=== PATIENT | female | born 1970 | race Caucasian/White ===

== ENCOUNTER → 2020-06-07 | Outpatient (CLI) | payer BC ==
--- NOTE | 2020-06-14 10:14 | MM ---
Reason for exam: screening (asymptomatic). Last mammogram was performed 1 year and 2 months ago. History: Family history of breast cancer in mother at age 67. Physical Findings: A clinical breast exam by your physician is recommended on an annual basis and results should be correlated with mammographic findings. MG Screening Mammo w CAD Bilateral CC and MLO view(s) were taken. Prior study comparison: April 16, 2019, mammogram. January 14, 2018, mammogram. The breast tissue is heterogeneously dense. This may lower the sensitivity of mammography. No significant changes when compared with prior studies. ASSESSMENT: Benign, BI-RAD 2 RECOMMENDATION: Routine screening mammogram of both breasts in 1 year.
== END | disposition home or self-care (01) ==
LOC: RADMAMWWP 13:49
PROVIDERS: ATTEND Psychiatry & Neurology Psychiatry
DX: Z12.31 Encounter for screening mammogram for malignant neoplasm of breast (principal)
CPT/HCPCS: 77067

== ENCOUNTER → 2020-07-29 | Outpatient (CLI) | payer OTHER ==
--- NOTE | 2020-07-29 13:16 | XR ---
Left knee HISTORY: Trauma and pain 3 views of left knee Bone mineralization, joint spaces and alignment are maintained. Minimal suprapatellar increased densi ty suggests joint effusion. Some spurring present at the patellofemoral joint. IMPRESSION: No acute fracture or dislocation is evident. Small joint effusion. Knee MRI may be of elyse efit.
== END | disposition home or self-care (01) ==
LOC: RADXRMAIN 12:47
PROVIDERS: ATTEND Emergency Medicine
DX: M25.462 Effusion, left knee (principal)

== ENCOUNTER → 2020-08-10 | Outpatient (CLI) | payer OTHER ==
--- NOTE | 2020-08-10 14:44 | XR ---
Left knee HISTORY: Pain, slip and fall 3 views the left knee correlated prior exam 07/29/2020 There is no interval change, suprapatellar increased density may be indicative of small effusion. Dif ficult to exclude small loose body. IMPRESSION: Stable exam, no acute fracture or dislocation.
== END | disposition home or self-care (01) ==
LOC: RADXRMAIN 14:17
PROVIDERS: ATTEND Emergency Medicine
DX: S80.02XD Contusion of left knee, subsequent encounter (principal); S83.92XD Sprain of unspecified site of left knee, subsequent encounter

== ENCOUNTER → 2020-09-22 | Outpatient (CLI) | payer OTHER ==
--- NOTE | 2020-09-22 13:09 | MR ---
EXAMINATION TYPE: MR knee LT wo con DATE OF EXAM: 09/22/2020 COMPARISON: Left knee x-ray August 10, 2020 HISTORY: LT KNEE PAIN DUE TO FALL TECHNIQUE: Multiplanar, multisequence imaging of the left knee is performed without IV contrast. FINDINGS: MEDIAL MENISCUS: Anterior and posterior horns are intact without tear. LATERAL MENISCUS: Anterior and posterior horns are intact without tear. CRUCIATE LIGAMENTS: The anterior and posterior cruciate ligaments are intact and unremarkable. COLLATERAL LIGAMENTS: The medial collateral ligament and lateral collateral ligament complex are inta ct and unremarkable. EXTENSOR MECHANISM: Visualized quadriceps and patellar tendons are intact. EFFUSION: No significant suprapatellar joint effusion. POPLITEAL CYST: No popliteal/feliz cyst. TRICOMPARTMENT SPACES: Mild to moderate narrowing inferior patellofemoral compartment. Mild tricompar tment joint space spurring CARTILAGE: Some chondromalacia patella with thinning of articular cartilage inferiorly along the post erior patellar pole. There is full-thickness loss inferiorly near axial image 20 identified. BONE MARROW SIGNAL: Areas of heterogeneous subchondral cystic change and full-thickness cartilaginous loss inferior patellar pole axial image 20 and sagittal image 11 noted. OTHER: No additional significant abnormality is appreciated. IMPRESSION: No full-thickness meniscal or ligamentous tear is seen. Fairly moderate patellofemoral frances int arthropathy as detailed above otherwise unremarkable study.
== END | disposition home or self-care (01) ==
LOC: RADMRIMAIN 10:34
PROVIDERS: ATTEND Emergency Medicine
DX: M17.12 Unilateral primary osteoarthritis, left knee (principal)